=== PATIENT | female | born 1995 | race Caucasian/White ===

== ENCOUNTER 2022-06-06 15:20 | Inpatient (IN) ==
[2022-06-06] MEDS ORDERED: LORazepam 1 MG TAB SL STA (16:14)
--- NOTE | 2022-06-06 16:16 | Emergency Department Note ---
Impression & Plan Chest pain, Suicidal ideations, Depression ED Provider Note NAME: ODALIS WALTON AGE: 26 SEX: F : 1995 ARRIVES VIA: Walk-In INFORMANT: Patient, Mom ED PROVIDER(S): Prakash Whitehead DO CHIEF COMPLAINT: depression HPI: Patient is a 26-year-old female with a past medical history of ADD and OCD on Risperdal that presents to the ER for suicidal ideations that have been present for the past week. She notes that she lost her job and that has made things spiraled out of control. She admits to wanting to and has thoughts of killing herself and has thought about crashing her car or cutting her wrist to kill her self. She is very anxious that she does not want to leave her family. She denies any headache or change in vision. She admits to chest pain its been present for several weeks. No arm pain or jaw pain. Does not change with breathing. No new belly pain. No dysuria urgency or frequency. No other exacerbating or remitting factors. ROS: See above HPI for pertinent positives & negatives. A total of 10 systems r eviewed and were otherwise negative. PAST MEDICAL HISTORY:See Below PAST SURGICAL HISTORY:See Below FAMILY HISTORY:See Below SOCIAL HISTORY:See Below HOME MEDICATIONS:See Below ALLERGIES:See Below VITALS:See Below PHYSICAL EXAMINATION: GENERAL: Sitting up in bed, alert, tearful, crying EYE EXAM: normal conjunctiva. PERRL and EOM's grossly intact. OROPHARYNX: no exudate, no erythema, lips, buccal mucosa, and tongue normal and mucous membranes are moist NECK: supple, no nuchal rigidity, no adenopathy, non-tender LUNGS: Clear to auscultation. Normal chest wall mechanics HEART: no murmurs, S1 normal and S2 normal ABDOMEN: abdomen soft, non-tender, normo-active bowel sounds, no masses, no rebound or guarding. BACK: Back is symmetrical on inspection and there is no deformity, no midline tenderness, no CVA tenderness. SKIN: no rashes and no bruising UPPER EXTREMITIES: upper extremities are grossly normal. LOWER EXTREMITIES: No pitting edema. calfs are equal B/L NEURO EXAM: Normal sensorium, cranial nerves II-XII grossly intact, normal speech, no gross weakness of arms, no gross weakness of legs. PSYCH: Admits to suicidal ideations with a plan to kill her self MEDICAL DECISION MAKING: Patient is a 26-year-old female who presents ER for suicidal ideations. She does have a plan. Labs were obtained and showed no significant leukocytosis or anemia. D-dimer was negative and was obtained as she was complaining of chest pain this has been present for the past several weeks although she notes this is fairly consistent with her anxiety. BMP along with LFTs bilirubin was unrema rkable. TSH was normal. Troponin was negative. UA was contaminated. Tox was negative. Alcohol negative. COVID-negative. This x-ray was clean. EKG was nondiagnostic. Patient was admitted to 3 S. patient was given dose of Ativan while in the ER which helped her calm down significantly Start Time: 1600 Reason: Patient with PMHx of depression underwent ED Observation for chest pain and SI. Fam Hx: No pertinent family history SocHx: See Below Assessment(s): As described above Summary: As described above in [facility] Disposition: 06/06/2022 at 1933 total Time: 4hrs and 15 mins Triage Nursing notes reviewed. Limited review of prior medical records performed Vital Signs: reviewed and remarkable for HTN and tachy Differential diagnosis: Mood disorder, infection, hypoglycemia, electrolyte abnormalities, cardiac sources, intracerebral event, toxicologic, trauma, neurologic, as well as other pathologies. Cardiac ischemia, aortic dissection, pulmonary embolism, pneumothorax, pneumonia, pericarditis, myocarditis, esophageal rupture, GERD, cholecystitis, pancreatitis, musculoskeletal, as well as other pathologies. ER treatment provided: See below Diagnostics interpreted by me: ECG: Sinus rhythm rate 77 Normal axis No PVCs QTC 443 Laboratory studies: As stated above and show below. Imaging studies: Portable AP upright 1 view of the chest is unremarkable Consultation(s): none Procedures: none Critical Care: None Past Med/Surg History Medical History (Updated 06/06/22 @ 23:16 by Prakash Whitehead DO) Anxiety OCD (obsessive compulsive disorder) Family History Other No significant family history Social History Smoking Status: Never smoker Preferred Language: Wallisian Communication Ability: Effective Vacuum Drier Tender Required: No Beliefs That Will Affect Care: None Feels Safe at Home: Yes Assistive Devices: Glasses Allergies Allergies Allergy/AdvReac Type Severity Reaction Status Date / Time Penicillins Allergy Rash Verified 07/07/18 18:13 Home Meds Home Medications Medication Instructions Recorded Confirmed risperidone 2 mg PO 1XD anxiety 06/06/22 06/06/22 Results & Data (ED) Vital Signs Vital Signs - 24 hr 06/06/22 15:22 06/06/22 17:20 Temperature 36.8 C 36.6 C Temperature Source Temporal Artery Scan Oral Pulse Rate 108 H Pulse Rate [Finger] 68 Pulse Rhythm [Finger] Regular Pulse Strength [Finger] Normal Respiratory Rate 18 16 Respiratory Effort / Characteristics Non-Labored Respiratory Depth Normal Respiratory Pattern Regular Blood Pressure 150/74 H Blood Pressure [Right Arm] 128/74 Blood Pressure Mean 99 Blood Pressure Mean [Right Arm] 92 Pulse Oximetry 99 98 Oxygen Delivery Method Room Air Room Air Sepsis Recent Fever Within 48 Hours No Sepsis New/Unexplained Change in Mental Status No Sepsis Action Taken by Nursing No Action Required Laboratory Data Result diagrams: 06/06/22 16:39 06/06/22 16:39 Lab Results 06/06/22 06/06/22 06/06/22 Range/Units 15:55 15:55 15:55 WBC (4.8-10.8) K/ul RBC (3.93-5.22) M/uL Hgb (12.0-16.0) g/dl Hct (34.1-44.9) % MCV (80.0-100.0) fL MCH (25.0-34.0) pg MCHC (32.0-36.0) g/dL RDW Std Deviation (36.4-46.3) fL RDW Coeff of Christal (11.5-14.5) % Plt Count (130-400) K/uL MPV (9.4-12.3) fL Immature Gran % (Auto) % Neut % (Auto) % Lymph % (Auto) % Schleicher % (Auto) % Eos % (Auto) % Baso % (Auto) % Neut # (Auto) (1.4-6.5) K/uL Lymph # (Auto) (1.2-3.4) K/uL Schleicher # (Auto) (0.24-0.82) K/uL Eos # (Auto) (0-0.50) K/uL Baso # (Auto) (0-0.2) K/uL Immature Gran # (Auto) (0.00-0.02) K/uL D-Dimer (0-500) ug/L FEU Sodium (136-145) mmol/L Potassium (3.5-5.1) mmol/L Chloride (98-107) mmol/L Carbon Dioxide (21-32) mmol/L Anion Gap (3-11) BUN (6-23) mg/dl Creatinine (0.6-1.2) mg/dl Est Cr Clr Drug Dosing ml/min Est GFR ( Amer) ml/min Est GFR (Non-Af Amer) ml/min BUN/Creatinine Ratio (10-20) Glucose (70-99(Fasting)) mg/dl Calcium (8.5-10.1) mg/dl Total Bilirubin (0.2-1.0) mg/dl AST (13-39) U/L ALT (7-52) U/L Alkaline Phosphatase (34-104) U/L Troponin I High Sens (0-14) pg/ml Total Protein (6.0-8.3) gm/dl Albumin (3.4-5.0) gm/dl Globulin (2.5-4.0) gm/dl Albumin/Globulin Ratio (0.9-2) TSH (0.300-4.500) uIu/ml Urine Color Yellow Urine Appearance Clear (Clear) Urine pH 6.5 (4.5-7.5) Ur Specific [place] 1.005 (1.000-1.030) Urine Protein Negative (Negative) Urine Glucose (UA) Negative (Negative) Urine Ketones Negative (Negative) Urine Blood Negative (Negative) Urine Nitrite Negative (Negative) Urine Bilirubin Negative (Negative) Urine Urobilinogen Negative (Negative) Ur Leukocyte Esterase 3+ H (Negative) Urine WBC (Auto) 10-30 H (0-5) /hpf Urine RBC (Auto) 0-4 (0-4) /hpf U Hyaline Cast (Auto) 1-5 (0-5) /lpf U Epithel Cells (Auto) >30 H (0-5) /lpf Urine Bacteria (Auto) 1+ H (Negative) POC Ur Test NEG (NEG) Salicylates (3.0-30) mg/dl Urine Opiates Screen (Neg) Ur Methadone, Qual (Neg) Acetaminophen (10-30) ug/ml Urine Barbiturates (Neg) Ur Phencyclidine (PCP) (Neg) U Amphetamin/Meth Scrn (Neg) MDMA (Ecstasy) Screen (Neg) U Benzodiazepines Scrn (Neg) Ur Cocaine Metabolite (Neg) U Marijuana (THC) Screen (Neg) Ethyl Alcohol mg/dL (<10.0) mg/dl SARS-CoV-2, RNA, NAAT NEGATIVE (NEGATIVE) 06/06/22 06/06/22 06/06/22 Range/Units 15:55 16:39 16:39 WBC 6.88 (4.8-10.8) K/ul RBC 4.92 (3.93-5.22) M/uL Hgb 14.2 (12.0-16.0) g/dl Hct 41.3 (34.1-44.9) % MCV 83.9 (80.0-100.0) fL MCH 28.9 (25.0-34.0) pg MCHC 34.4 (32.0-36.0) g/dL RDW Std Deviation 35.8 L (36.4-46.3) fL RDW Coeff of Christal 11.8 (11.5-14.5) % Plt Count 358 (130-400) K/uL MPV 9.9 (9.4-12.3) fL Immature Gran % (Auto) 0.9 % Neut % (Auto) 49.6 % Lymph % (Auto) 35.3 % Schleicher % (Auto) 9.4 % Eos % (Auto) 3.6 % Baso % (Auto) 1.2 % Neut # (Auto) 3.41 (1.4-6.5) K/uL Lymph # (Auto) 2.43 (1.2-3.4) K/uL Schleicher # (Auto) 0.65 (0.24-0.82) K/uL Eos # (Auto) 0.25 (0-0.50) K/uL Baso # (Auto) 0.08 (0-0.2) K/uL Immature Gran # (Auto) 0.06 H (0.00-0.02) K/uL D-Dimer (0-500) ug/L FEU Sodium 138 (136-145) mmol/L Potassium 3.8 (3.5-5.1) mmol/L Chloride 105 (98-107) mmol/L Carbon Dioxide 28 (21-32) mmol/L Anion Gap 5 (3-11) BUN 11 (6-23) mg/dl Creatinine 0.83 (0.6-1.2) mg/dl Est Cr Clr Drug Dosing 100.8 ml/min Est GFR ( Amer) 113.6 ml/min Est GFR (Non-Af Amer) 98.0 ml/min BUN/Creatinine Ratio 13.3 (10-20) Glucose 79 (70-99(Fasting)) mg/dl Calcium 9.4 (8.5-10.1) mg/dl Total Bilirubin 0.3 (0.2-1.0) mg/dl AST 10 L (13-39) U/L ALT 9 (7-52) U/L Alkaline Phosphatase 55 (34-104) U/L Troponin I High Sens < 2.3 (0-14) pg/ml Total Protein 7.6 (6.0-8.3) gm/dl Albumin 4.5 (3.4-5.0) gm/dl Globulin 3.1 (2.5-4.0) gm/dl Albumin/Globulin Ratio 1.5 (0.9-2) TSH (0.300-4.500) uIu/ml Urine Color Urine Appearance (Clear) Urine pH (4.5-7.5) Ur Specific [place] (1.000-1.030) Urine Protein (Negative) Urine Glucose (UA) (Negative) Urine Ketones (Negative) Urine Blood (Negative) Urine Nitrite (Negative) Urine Bilirubin (Negative) Urine Urobilinogen (Negative) Ur Leukocyte Esterase (Negative) Urine WBC (Auto) (0-5) /hpf Urine RBC (Auto) (0-4) /hpf U Hyaline Cast (Auto) (0-5) /lpf U Epithel Cells (Auto) (0-5) /lpf Urine Bacteria (Auto) (Negative) POC Ur Test (NEG) Salicylates (3.0-30) mg/dl Urine Opiates Screen Neg (Neg) Ur Methadone, Qual Neg (Neg) Acetaminophen (10-30) ug/ml Urine Barbiturates Neg (Neg) Ur Phencyclidine (PCP) Neg (Neg) U Amphetamin/Meth Scrn Neg (Neg) MDMA (Ecstasy) Screen Neg (Neg) U Benzodiazepines Scrn Neg (Neg) Ur Cocaine Metabolite Neg (Neg) U Marijuana (THC) Screen Neg (Neg) Ethyl Alcohol mg/dL (<10.0) mg/dl SARS-CoV-2, RNA, NAAT (NEGATIVE) 06/06/22 06/06/22 06/06/22 Range/Units 16:39 16:39 16:39 WBC (4.8-10.8) K/ul RBC (3.93-5.22) M/uL Hgb (12.0-16.0) g/dl Hct (34.1-44.9) % MCV (80.0-100.0) fL MCH (25.0-34.0) pg MCHC (32.0-36.0) g/dL RDW Std Deviation (36.4-46.3) fL RDW Coeff of Christal (11.5-14.5) % Plt Count (130-400) K/uL MPV (9.4-12.3) fL Immature Gran % (Auto) % Neut % (Auto) % Lymph % (Auto) % Schleicher % (Auto) % Eos % (Auto) % Baso % (Auto) % Neut # (Auto) (1.4-6.5) K/uL Lymph # (Auto) (1.2-3.4) K/uL Schleicher # (Auto) (0.24-0.82) K/uL Eos # (Auto) (0-0.50) K/uL Baso # (Auto) (0-0.2) K/uL Immature Gran # (Auto) (0.00-0.02) K/uL D-Dimer (0-500) ug/L FEU Sodium (136-145) mmol/L Potassium (3.5-5.1) mmol/L Chloride (98-107) mmol/L Carbon Dioxide (21-32) mmol/L Anion Gap (3-11) BUN (6-23) mg/dl Creatinine (0.6-1.2) mg/dl Est Cr Clr Drug Dosing ml/min Est GFR ( Amer) ml/min Est GFR (Non-Af Amer) ml/min BUN/Creatinine Ratio (10-20) Glucose (70-99(Fasting)) mg/dl Calcium (8.5-10.1) mg/dl Total Bilirubin (0.2-1.0) mg/dl AST (13-39) U/L ALT (7-52) U/L Alkaline Phosphatase (34-104) U/L Troponin I High Sens (0-14) pg/ml Total Protein (6.0-8.3) gm/dl Albumin (3.4-5.0) gm/dl Globulin (2.5-4.0) gm/dl Albumin/Globulin Ratio (0.9-2) TSH 1.097 (0.300-4.500) uIu/ml Urine Color Urine Appearance (Clear) Urine pH (4.5-7.5) Ur Specific [place] (1.000-1.030) Urine Protein (Negative) Urine Glucose (UA) (Negative) Urine Ketones (Negative) Urine Blood (Negative) Urine Nitrite (Negative) Urine Bilirubin (Negative) Urine Urobilinogen (Negative) Ur Leukocyte Esterase (Negative) Urine WBC (Auto) (0-5) /hpf Urine RBC (Auto) (0-4) /hpf U Hyaline Cast (Auto) (0-5) /lpf U Epithel Cells (Auto) (0-5) /lpf Urine Bacteria (Auto) (Negative) POC Ur Test (NEG) Salicylates < 3.0 L (3.0-30) mg/dl Urine Opiates Screen (Neg) Ur Methadone, Qual (Neg) Acetaminophen < 3 L (10-30) ug/ml Urine Barbiturates (Neg) Ur Phencyclidine (PCP) (Neg) U Amphetamin/Meth Scrn (Neg) MDMA (Ecstasy) Screen (Neg) U Benzodiazepines Scrn (Neg) Ur Cocaine Metabolite (Neg) U Marijuana (THC) Screen (Neg) Ethyl Alcohol mg/dL < 10.0 (<10.0) mg/dl SARS-CoV-2, RNA, NAAT (NEGATIVE) 06/06/22 Range/Units 16:39 WBC (4.8-10.8) K/ul RBC (3.93-5.22) M/uL Hgb (12.0-16.0) g/dl Hct (34.1-44.9) % MCV (80.0-100.0) fL MCH (25.0-34.0) pg MCHC (32.0-36.0) g/dL RDW Std Deviation (36.4-46.3) fL RDW Coeff of Christal (11.5-14.5) % Plt Count (130-400) K/uL MPV (9.4-12.3) fL Immature Gran % (Auto) % Neut % (Auto) % Lymph % (Auto) % Schleicher % (Auto) % Eos % (Auto) % Baso % (Auto) % Neut # (Auto) (1.4-6.5) K/uL Lymph # (Auto) (1.2-3.4) K/uL Schleicher # (Auto) (0.24-0.82) K/uL Eos # (Auto) (0-0.50) K/uL Baso # (Auto) (0-0.2) K/uL Immature Gran # (Auto) (0.00-0.02) K/uL D-Dimer 270 (0-500) ug/L FEU Sodium (136-145) mmol/L Potassium (3.5-5.1) mmol/L Chloride (98-107) mmol/L Carbon Dioxide (21-32) mmol/L Anion Gap (3-11) BUN (6-23) mg/dl Creatinine (0.6-1.2) mg/dl Est Cr Clr Drug Dosing ml/min Est GFR ( Amer) ml/min Est GFR (Non-Af Amer) ml/min BUN/Creatinine Ratio (10-20) Glucose (70-99(Fasting)) mg/dl Calcium (8.5-10.1) mg/dl Total Bilirubin (0.2-1.0) mg/dl AST (13-39) U/L ALT (7-52) U/L Alkaline Phosphatase (34-104) U/L Troponin I High Sens (0-14) pg/ml Total Protein (6.0-8.3) gm/dl Albumin (3.4-5.0) gm/dl Globulin (2.5-4.0) gm/dl Albumin/Globulin Ratio (0.9-2) TSH (0.300-4.500) uIu/ml Urine Color Urine Appearance (Clear) Urine pH (4.5-7.5) Ur Specific [place] (1.000-1.030) Urine Protein (Negative) Urine Glucose (UA) (Negative) Urine Ketones (Negative) Urine Blood (Negative) Urine Nitrite (Negative) Urine Bilirubin (Negative) Urine Urobilinogen (Negative) Ur Leukocyte Esterase (Negative) Urine WBC (Auto) (0-5) /hpf Urine RBC (Auto) (0-4) /hpf U Hyaline Cast (Auto) (0-5) /lpf U Epithel Cells (Auto) (0-5) /lpf Urine Bacteria (Auto) (Negative) POC Ur Test (NEG) Salicylates (3.0-30) mg/dl Urine Opiates Screen (Neg) Ur Methadone, Qual (Neg) Acetaminophen (10-30) ug/ml Urine Barbiturates (Neg) Ur Phencyclidine (PCP) (Neg) U Amphetamin/Meth Scrn (Neg) MDMA (Ecstasy) Screen (Neg) U Benzodiazepines Scrn (Neg) Ur Cocaine Metabolite (Neg) U Marijuana (THC) Screen (Neg) Ethyl Alcohol mg/dL (<10.0) mg/dl SARS-CoV-2, RNA, NAAT (NEGATIVE) Administered Medications Risperidone (Risperidone 2 Mg Tablet) 2 mg PO HS JIHAN Stop: 07/06/22 21:59 Last Admin: 06/06/22 21:08 Dose: Not Given Documented By: RB Discontinued Medications Lorazepam (Lorazepam 1 Mg Tab) 1 mg SL NOW STA Stop: 06/06/22 16:15 Last Admin: 06/06/22 16:20 Dose: 1 mg Documented By: JY Imaging Data Radiologist's Impression: Chest X-Ray 06/06/22 16:13 XR chest 1V portable HISTORY: Atypical chest pain. COMPARISON: None. FINDINGS: The lungs are clear. Cardiac silhouette is normal in size. No pleural effusions. No pneumothorax. IMPRESSION: No acute process. ACT 112: Negative or not required by law. Electronically signed by: Anthony Evans M.D. 06/06/2022 4:36 PM Discharge Plan Visit Data Chief Complaint: Mental Health Evaluation Stated Complaint: DEPRESSION ED Provider: Prakash Whitehead Discharge Problem: Chest pain, Suicidal ideations, Depression Patient Disposition: Admitted As Inpatient Discharge Instructions Interventions: ED Discharge Assessment Last Done: 06/06/22 19:31
[2022-06-06 16:27] LABS: Appearance Urine Clear (Clear); Bacteria Urine Automated 1+ (Negative); Bilirubin Urine Negative (Negative); Blood Urine Negative (Negative); Color Urine Yellow; Epithelial Cell Urine Auto >30 /lpf (0-5); Glucose Urine UA Negative (Negative); Ketones Urine Negative (Negative); Leukocyte Esterase Urine 3+ (Negative); Nitrite Urine Negative (Negative); Protein Urine Negative (Negative); RBC Urine Automated 0-4 /hpf (0-4); Specific Gravity Urine 1.005 (1.000-1.030); Urobilinogen Urine Negative (Negative); pH Urine 6.5 (4.5-7.5)
--- NOTE | 2022-06-06 16:39 | XRay Report ---
XR chest 1V portable HISTORY: Atypical chest pain. COMPARISON: None. FINDINGS: The lungs are clear. Cardiac silhouette is normal in size. No pleural effusions. No pneumot horax. IMPRESSION: No acute process. ACT 112: Negative or not required by law. Electronically signed by: Anthony Evans M.D. 06/06/2022 4:36 PM
[2022-06-06 16:44] LABS: Amphetamines+Metham, Urine Neg (Neg); Barbiturates, Urine Neg (Neg); Benzodiazepine, Urine Neg (Neg); Cocaine, Urine Neg (Neg); MDMA (Ecstacy), Urine Neg (Neg); Methadone, Urine Neg (Neg); Opiate, Urine Neg (Neg); Phencyclidine, Urine Neg (Neg)
[2022-06-06 17:13] LABS: D Dimer 270 ug/L FEU (0-500)
[2022-06-06 17:24] LABS: Basophils # (auto) 0.08 K/uL (0-0.2); Basophils % (auto) 1.2 %; Eosinophils # (auto) 0.25 K/uL (0-0.50); Eosinophils % (auto) 3.6 %; Hematocrit (blood only) 41.3 % (34.1-44.9); Hemoglobin 14.2 g/dl (12.0-16.0); Immature Granulocytes # (auto) 0.06 K/uL (0.00-0.02); Immature Granulocytes % (auto) 0.9 %; Lymphocytes # (auto) 2.43 K/uL (1.2-3.4); Lymphocytes % (auto) 35.3 %; Mean Corpuscular Hemoglobin 28.9 pg (25.0-34.0); Mean Corpuscular Hgb Conc 34.4 g/dL (32.0-36.0); Mean Corpuscular Volume 83.9 fL (80.0-100.0); Mean Platelet Volume 9.9 fL (9.4-12.3); Monocytes # (auto) 0.65 K/uL (0.24-0.82); Monocytes % (auto) 9.4 %; Neutrophils # (auto) 3.41 K/uL (1.4-6.5); Neutrophils % (auto) 49.6 %; Platelet Count 358 K/uL (130-400); RDW Coefficient of Variation 11.8 % (11.5-14.5); RDW Standard Deviation 35.8 fL (36.4-46.3); Red Blood Count 4.92 M/uL (3.93-5.22); White Blood Count 6.88 K/ul (4.8-10.8)
[2022-06-06 17:25] LABS: Alanine Aminotransferase 9 U/L (7-52); Albumin Globulin Ratio 1.5 (0.9-2); Albumin Level 4.5 gm/dl (3.4-5.0); Alkaline Phosphatase 55 U/L (34-104); Anion Gap 5 (3-11); Aspartate Aminotransferase 10 U/L (13-39); BUN Creatinine Ratio 13.3 (10-20); Bilirubin,Total 0.3 mg/dl (0.2-1.0); Blood Urea Nitrogen 11 mg/dl (6-23); Calcium 9.4 mg/dl (8.5-10.1); Carbon Dioxide 28 mmol/L (21-32); Chloride 105 mmol/L (98-107); Creatinine Clr Calc Pharmacy 100.8 ml/min; Est GFR (African American) 113.6 ml/min; Globulin 3.1 gm/dl (2.5-4.0); Glucose 79 mg/dl (70-99(Fasting)); Potassium 3.8 mmol/L (3.5-5.1); Sodium 138 mmol/L (136-145); Total Protein 7.6 gm/dl (6.0-8.3)
[2022-06-06 17:27] LABS: Acetaminophen < 3 ug/ml (10-30); Salicylate < 3.0 mg/dl (3.0-30)
[2022-06-06 17:30] LABS: Troponin I High Sensitivity < 2.3 pg/ml (0-14)
[2022-06-06] MEDS ORDERED: ALUMINUM/MAGNESIUM SUSP 30 ML UDC PO PRN (18:45)
[2022-06-06] MEDS ORDERED: BISMUTH SUBSALICYLATE LIQD 236 ML PO PRN (18:45)
[2022-06-06] MEDS ORDERED: ACETAMINOPHEN 325 MG TAB PO PRN (18:45)
[2022-06-06] MEDS ORDERED: hydrOXYzine HCl 25 MG TAB PO PRN (18:45)
[2022-06-06] MEDS ORDERED: SODIUM CHLORIDE 0.65% NA SOLN 45 ML (OCEAN) PRN (18:45)
[2022-06-06] MEDS ORDERED: MAGNESIUM HYDROXIDE SUSP 30 ML UDC PO PRN (18:45)
[2022-06-06] MEDS: risperiDONE 2 MG TABLET PO SCH (21:08)
--- NOTE | 2022-06-07 08:34 | Electrocardiogram Report ---
Test Reason : Blood Pressure : / mmHG Vent. Rate : 077 BPM Atrial Rate : 077 BPM P-R Int : 188 ms QRS Dur : 090 ms QT Int : 392 ms P-R-T Axes : 077 077 072 degrees QTc Int : 443 ms Normal sinus rhythm Possible Left atrial enlargement Abnormal ECG When compared with ECG of 07-JUL-2018 19:13, No significant change was found Confirmed by Dwight De Guzman ([id number]) on 06/07/2022 8:33:45 AM Referred By: REFERRED SELF Confirmed By:Dwight De Guzman
--- NOTE | 2022-06-07 08:34 | History & Physical ---
Date of Service June 07, 2022 Impression / Recommendations Impression The patient is a 26 year old with a history of ADHD, OCD, BRANNON with panic attacks who was admitted for worsening depression and SI. Diagnostically consistent with OCD, BRANNON with panic attacks and MDD with anxious distress. May be an avoidant/cluster C trait component as well. Significant cognitive distortions and feelings of worthlessness due to having to quit her job/feeling like a failure which seem to have set off this episode of depression. The patient is deemed unstable and requires psychiatric hospitalization for diagnostic clarification, safety and stabilization, medication management and development of further coping skills. Discussed medication treatment options in detail including SSRI, SNRI, clomipramine, antipsychotics, mirtazapine, Vistaril. Discussed risks, benefits and alternatives. Patient would like to start and consented to mirtazapine for BRANNON/MDD/insomnia. Reviewed side effects including but not limited to: sedation, increased appetite, dizziness. She cannot recall if she tried sertraline in the past so will await record review and then determine sertraline vs venlafaxine trial. MNPR due to severe anxiety and OCD with contamination concerns (1) Severe single episode of major depressive disorder with anxiety: (2) Obsessive compulsive disorder: (3) Generalized anxiety disorder with panic attacks: Plan 06/07/22: The patient was admitted to the [facility] ([facility]) on q15 min checks (behavioral with suicide precautions) for safety. The patient will participate in group, recreational, and milieu therapies and will be offered additional individual and family sessions as clinically appropriate. -holding risperidone per her preference -start mirtazapine 7.5mg qhs for depression and anxiety -consider sertraline vs venlafaxine for OCD/BRANNON/MDD -consider N-acetyl cysteine trial in outpatient setting for further augmentation for OCD symptoms -Case management referral Inventory Assets Strengths: supportive relationships, willing to get treatment, has good rapport with outpatient providers Needs: safety and stabilization, medication adjustment, additional coping skills, increased outpatient services Suicide Risk Level Suicide Risk Level: High-Moderate (q15 min suicide checks) Suicide Risk Level Comments: High-Moderate due to severe depression with SI with plan prior to admission but feels safe in the hospital, able to safety contract and agrees to let nursing/staff know should they develop plan, intent or feel unable to remain safe. Risk Factors Assessment : Yes Do You Have Access To A Gun?: No Health Problems: No Mental Health Diagnoses: Yes Substance Use Disorders: No Previous Attempt: No Family History of Suicide: No Previous Psychiatric Hospitalization: Yes Hopelessness: Yes Protective Factors Assessment Employed: No Stable Relationships: Yes Supportive Family: Yes Good Rapport with Provider: Yes Psychiatric History Identifying Data ODALIS WALTON is a 26-year-old F who currently lives in [place] with her parents, has a history of ADHD, OCD, anxiety with panic attacks, and was admitted on 06/06/22 18:46 on a 201 voluntary commitment for worsening depression and SI with plan of crashing her car or cutting her wrist. Chief Complaint "I miss my mom". History of Present Illness She presents for psychiatric admission for worsening depression and SI with plan of crashing her car or cutting her wrists in the context of multiple psychosocial stressors including loss of her job/having to quit a week ago due to difficulty working/feedback that she had made mistakes and social isolation. She is very tearful this morning as she misses her parents and notes that it's difficult to be away from her mom. She notes "I'm scared of everything" including "how I'm going to keep a job" and she notes "I can't do my job right because of my OCD or I'm not qualified because I'm not good enough at it". "I just don't want to hurt and be so tired anymore". She notes "I don't want to live like this and I have no hope". She gets really worried that something bad will happen to her parents. Further recent history reviewed and confirmed as documented by ED CM on 06/06/22: "Patient presents very tearful. Patient states that she "wants to and does not want to live any more." Patient reports that she has history of OCD and ADHD. 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 Patient reports that she has been having bad thoughts for awhile, but they have worsened in the past week. Patient reports having suicidal thoughts of cutting her wrist or running her car into a tree." "Patient denies history of depression. Patient reports that she started having depression symptoms within the past week after losing her job. Patient reports decreased appetite, isolation, insomnia, poor concentration, and loss of interest in things that she usually finds pleasure in. Patient denies prior history of suicidal thoughts prior to this episode. Patient does report history of self-harm by punching herself in the stomach to make sure she can still feel. Patient scored high-moderate on suicide risk assessment. Patient reports protective factors being her parents. Patient does not want to hurt her parents by killing herself, but she is uncertain that it will keep herself from hurting herself. Patient reports a good relationship with her mental health providers. Patient also reports a very supportive relationship with her parents. [...] Patient reports that her OCD symptoms have greatly improved over the past week because she feels her depressive symptoms have over shadowed them. Patient reports that her parents were contaminated and they could not touch her. This past week she has allowed them to hug her, and provided physical support." She endorses depressive symptoms including tearfulness, anhedonia (usually loves to read, watch TV but hasn't been able to do these things recently), decreased motivation, difficulty focusing, self-guilt, helplessness, hopelessness, decreased energy, stable appetite but stomach has been upset recently with increased anxiety, and decreased sleep with difficulty staying asleep because wakes up with worries. She continues to have intermittent SI "they come and go". She also endorses symptoms of anxiety including generalized worries, shakiness, easily overwhelmed and panic attacks including "passing out from them" or "throwing up". With her OCD has a lot of numbers and patterns and some feel good versus bad. Compulsion requires her to repeat counting pattern and if she don't she feels "bad". She also has contamination concerns and has the compulsion to wash and was spending a lot of time doing this. She is currently prescribed psychiatric medication of risperidone 2mg qhs (has been taking this for about 6 months, had been helping OCD but she feels it's making her depression worse). Psychiatric ROS notable for no current nor history of symptoms of emley, psychosis, PTSD, nor eating disorder. Past Psychiatric History Current Psychiatric Diagnosis: OCD, ADD, anxiety Outpatient Services: therapist, Chantal Finn weekly including ERP and CBT, psychiatrist Dr. Sara Davidson weekly via telemedicine from [facility] for about 6 months Previous Psych Admissions: [facility] for 3 months in 2019 Do You Have Access To A Gun?: No History of Previous Suicide Attempt: No Past Medication Trials: fluvoxamine, fluoxetine, escitalopram-she recalls incontinence with one me dication in the past never tried clomipramine, SNRI Past Head Trauma/Neuro History History of Concussion/Seizure: No Allergies Allergy/AdvReac Type Severity Reaction Status Date / Time Penicillins Allergy Rash Verified 07/07/18 18:13 cat hair AdvReac Mild sinus Uncoded 06/07/22 10:43 congestion Home Medications Medication Instructions Recorded Confirmed Type risperidone 2 mg PO 1XD anxiety 06/06/22 06/06/22 History Family History Family History of: Depression (sister) and Anxiety (sister, mom) Alcohol History Hx of Alcohol Use Over the Past 12 Months: No AUDIT Total Score: 0 Smoking Use Have You Smoked or Used Tobacco Products in the Last 30 Days: No Smoking Status: Never smoker Substance History Hx of Prescription Med Misuse Over the Past 12 Months: No Hx of Over the Counter Med Misuse Over the Past 12 Months: No Hx of Inhalent Misuse Over the Past 12 Months: No Hx of Organic Substance Use Over the Past 12 Months: No Hx of Illegal Substances/Street Drug Use Over Past 12 Months: No Problems as a Result of Past Substance Use: None Identified Personal History Living Arrangements: Home Childhood: Grew up in [place]. Parents are . Has two sisters, both younger. Highest Grade Completed: College ([employer] with degree in security risk analysis) Employment Status: Unemployed Marital Status: Single Number Of Children: 0 Beliefs That Will Affect Care: None Current Legal Problems: No Hx Legal Problems: No Hx Traumatic Life Events: No Patient History Medical History (Updated 06/07/22 @ 11:12 by Genesis Magana MD) Anxiety OCD (obsessive compulsive disorder) Family History Other No significant family history Social History Smoking Status: Never smoker Preferred Language: Moroccan Communication Ability: Effective Access Consultant Required: No Beliefs That Will Affect Care: None Feels Safe at Home: Yes Assistive Devices: Glasses Review of Systems Review of Systems: All systems reviewed & are unremarkable except as noted in HPI & below (legs achy, LOPEZ, stomach ache) Physical Exam Psychiatric: Orientation: alert and oriented x 3 Apperance: appropriately dressed and appropriately groomed Eye Contact: good eye contact Motor Behavior: no abnormal motor movements Speech: normal rate/rhythm/volume of speech Affect: + depressed affect, + anxious affect and + tearful affect Mood: + depressed mood and + anxious mood Thought Process: goal directed thought process and + perseveration Thought Content: + obsessions, reality based without delusions, + compulsions, + hopelessness and + worthlessness Suicidal Thoughts: denies suicidal plan and denies suicidal intent; + reports suicidal thoughts (intermittent passive thoughts ) Homicidal Thoughts: denies homicidal thoughts Hallucinations: no auditory hallucinations and no visual hallucinations Cognition: recent memory grossly intact, remote memory grossly intact, attention grossly intact and language grossly intact Estimated Intelligence: consistent with education level Insight: + limited insight Judgement: + fair judgement Vital Signs (Past 24 Hours): Last Vital Signs Temp 36.8 C 06/07/22 06:40 Pulse 98 H 06/07/22 06:41 Resp 18 06/07/22 06:40 BP 103/70 06/07/22 06:41 Pulse Ox 100 06/06/22 20:18 O2 Del Method 06/06/22 20:18 Exam Statement: A physical exam was performed in the ED by Dr. Whitehead for the purposes of medical clearance. I accept that physical as correct and adequate for the purposes of the inpatient physical exam. Results & Data ([facility]) Laboratory Results Laboratory Results - last 24 hr 06/06/22 06/06/22 06/06/22 15:55 15:55 15:55 WBC RBC Hgb Hct MCV MCH MCHC RDW Std Deviation RDW Coeff of Christal Plt Count MPV Immature Gran % (Auto) Neut % (Auto) Lymph % (Auto) [place] % (Auto) Eos % (Auto) Baso % (Auto) Neut # (Auto) Lymph # (Auto) [place] # (Auto) Eos # (Auto) Baso # (Auto) Immature Gran # (Auto) D-Dimer Sodium Potassium Chloride Carbon Dioxide Anion Gap BUN Creatinine Est Cr Clr Drug Dosing Est GFR ( Amer) Est GFR (Non-Af Amer) BUN/Creatinine Ratio Glucose Calcium Total Bilirubin AST ALT Alkaline Phosphatase Troponin I High Sens Total Protein Albumin Globulin Albumin/Globulin Ratio TSH Urine Color Yellow Urine Appearance Clear Urine pH 6.5 Ur Specific Hendricks 1.005 Urine Protein Negative Urine Glucose (UA) Negative Urine Ketones Negative Urine Blood Negative Urine Nitrite Negative Urine Bilirubin Negative Urine Urobilinogen Negative Ur Leukocyte Esterase 3+ H Urine WBC (Auto) 10-30 H Urine RBC (Auto) 0-4 U Hyaline Cast (Auto) 1-5 U Epithel Cells (Auto) >30 H Urine Bacteria (Auto) 1+ H POC Ur Test NEG Salicylates Urine Opiates Screen Ur Methadone, Qual Acetaminophen Urine Barbiturates Ur Phencyclidine (PCP) U Amphetamin/Meth Scrn MDMA (Ecstasy) Screen U Benzodiazepines Scrn Ur Cocaine Metabolite U Marijuana (THC) Screen Ethyl Alcohol mg/dL SARS-CoV-2, RNA, NAAT NEGATIVE 06/06/22 06/06/22 06/06/22 15:55 16:39 16:39 WBC 6.88 RBC 4.92 Hgb 14.2 Hct 41.3 MCV 83.9 MCH 28.9 MCHC 34.4 RDW Std Deviation 35.8 L RDW Coeff of Christal 11.8 Plt Count 358 MPV 9.9 Immature Gran % (Auto) 0.9 Neut % (Auto) 49.6 Lymph % (Auto) 35.3 [place] % (Auto) 9.4 Eos % (Auto) 3.6 Baso % (Auto) 1.2 Neut # (Auto) 3.41 Lymph # (Auto) 2.43 [place] # (Auto) 0.65 Eos # (Auto) 0.25 Baso # (Auto) 0.08 Immature Gran # (Auto) 0.06 H D-Dimer Sodium 138 Potassium 3.8 Chloride 105 Carbon Dioxide 28 Anion Gap 5 BUN 11 Creatinine 0.83 Est Cr Clr Drug Dosing 100.8 Est GFR ( Amer) 113.6 Est GFR (Non-Af Amer) 98.0 BUN/Creatinine Ratio 13.3 Glucose 79 Calcium 9.4 Total Bilirubin 0.3 AST 10 L ALT 9 Alkaline Phosphatase 55 Troponin I High Sens < 2.3 Total Protein 7.6 Albumin 4.5 Globulin 3.1 Albumin/Globulin Ratio 1.5 TSH Urine Color Urine Appearance Urine pH Ur Specific Hendricks Urine Protein Urine Glucose (UA) Urine Ketones Urine Blood Urine Nitrite Urine Bilirubin Urine Urobilinogen Ur Leukocyte Esterase Urine WBC (Auto) Urine RBC (Auto) U Hyaline Cast (Auto) U Epithel Cells (Auto) Urine Bacteria (Auto) POC Ur Test Salicylates Urine Opiates Screen Neg Ur Methadone, Qual Neg Acetaminophen Urine Barbiturates Neg Ur Phencyclidine (PCP) Neg U Amphetamin/Meth Scrn Neg MDMA (Ecstasy) Screen Neg U Benzodiazepines Scrn Neg Ur Cocaine Metabolite Neg U Marijuana (THC) Screen Neg Ethyl Alcohol mg/dL SARS-CoV-2, RNA, NAAT 06/06/22 06/06/22 06/06/22 16:39 16:39 16:39 WBC RBC Hgb Hct MCV MCH MCHC RDW Std Deviation RDW Coeff of Christal Plt Count MPV Immature Gran % (Auto) Neut % (Auto) Lymph % (Auto) [place] % (Auto) Eos % (Auto) Baso % (Auto) Neut # (Auto) Lymph # (Auto) [place] # (Auto) Eos # (Auto) Baso # (Auto) Immature Gran # (Auto) D-Dimer Sodium Potassium Chloride Carbon Dioxide Anion Gap BUN Creatinine Est Cr Clr Drug Dosing Est GFR ( Amer) Est GFR (Non-Af Amer) BUN/Creatinine Ratio Glucose Calcium Total Bilirubin AST ALT Alkaline Phosphatase Troponin I High Sens Total Protein Albumin Globulin Albumin/Globulin Ratio TSH 1.097 Urine Color Urine Appearance Urine pH Ur Specific [place]ricks Urine Protein Urine Glucose (UA) Urine Ketones Urine Blood Urine Nitrite Urine Bilirubin Urine Urobilinogen Ur Leukocyte Esterase Urine WBC (Auto) Urine RBC (Auto) U Hyaline Cast (Auto) U Epithel Cells (Auto) Urine Bacteria (Auto) POC Ur Test Salicylates < 3.0 L Urine Opiates Screen Ur Methadone, Qual Acetaminophen < 3 L Urine Barbiturates Ur Phencyclidine (PCP) U Amphetamin/Meth Scrn MDMA (Ecstasy) Screen U Benzodiazepines Scrn Ur Cocaine Metabolite U Marijuana (THC) Screen Ethyl Alcohol mg/dL < 10.0 SARS-CoV-2, RNA, NAAT 06/06/22 16:39 WBC RBC Hgb Hct MCV MCH MCHC RDW Std Deviation RDW Coeff of Christal Plt Count MPV Immature Gran % (Auto) Neut % (Auto) Lymph % (Auto) [place] % (Auto) Eos % (Auto) Baso % (Auto) Neut # (Auto) Lymph # (Auto) [place] # (Auto) Eos # (Auto) Baso # (Auto) Immature Gran # (Auto) D-Dimer 270 Sodium Potassium Chloride Carbon Dioxide Anion Gap BUN Creatinine Est Cr Clr Drug Dosing Est GFR ( Amer) Est GFR (Non-Af Amer) BUN/Creatinine Ratio Glucose Calcium Total Bilirubin AST ALT Alkaline Phosphatase Troponin I High Sens Total Protein Albumin Globulin Albumin/Globulin Ratio TSH Urine Color Urine Appearance Urine pH Ur Specific [place] Urine Protein Urine Glucose (UA) Urine Ketones Urine Blood Urine Nitrite Urine Bilirubin Urine Urobilinogen Ur Leukocyte Esterase Urine WBC (Auto) Urine RBC (Auto) U Hyaline Cast (Auto) U Epithel Cells (Auto) Urine Bacteria (Auto) POC Ur Test Salicylates Urine Opiates Screen Ur Methadone, Qual Acetaminophen Urine Barbiturates Ur Phencyclidine (PCP) U Amphetamin/Meth Scrn MDMA (Ecstasy) Screen U Benzodiazepines Scrn Ur Cocaine Metabolite U Marijuana (THC) Screen Ethyl Alcohol mg/dL SARS-CoV-2, RNA, NAAT Current Inpatient Medications Current Inpatient Medications: Current Inpatient Medications Acetaminophen (Acetaminophen 325 Mg Tab) 650 mg PO Q4H PRN PRN Reason: Headache or Minor Fever Stop: 07/06/22 18:44 Al Hydrox/Mg Hydrox/Simethicone (Aluminum/Magnesium Susp 30 Ml Udc) 30 ml PO Q4H PRN PRN Reason: GI Upset Stop: 07/06/22 18:44 Bismuth Subsalicylate (Bismuth Subsalicylate Liqd 236 Ml) 15 ml PO PRN PRN PRN Reason: Loose Stool Stop: 07/06/22 18:44 Hydroxyzine HCl (Hydroxyzine Hcl 25 Mg Tab) 50 mg PO HSZ PRN PRN Reason: Insomnia Stop: 07/06/22 18:44 Hydroxyzine HCl (Hydroxyzine Hcl 25 Mg Tab) 25 mg PO Q4H PRN PRN Reason: Anxiety Stop: 07/06/22 18:44 Magnesium Hydroxide (Magnesium Hydroxide Susp 30 Ml Udc) 30 ml PO DAILY PRN PRN Reason: Constipation Stop: 07/06/22 18:44 Risperidone (Risperidone 2 Mg Tablet) 2 mg PO HS JIHAN Stop: 07/06/22 21:59 Last Admin: 06/06/22 21:08 Dose: Not Given Sodium Chloride (Sodium Chloride 0.65% Na Soln 45 Ml ([place])) 1 - 2 sprays NA PRN PRN PRN Reason: Nasal Dryness/Congestion Stop: 07/06/22 18:44
[2022-06-07] MEDS: hydrOXYzine HCl 25 MG TAB PO PRN (09:14)
[2022-06-07] MEDS: risperiDONE 2 MG TABLET PO SCH (21:19)
[2022-06-08] MEDS: hydrOXYzine HCl 25 MG TAB PO PRN (08:12)
--- NOTE | 2022-06-08 12:43 | Psychiatric Progress Note ---
Date of Service June 08, 2022 Impression / Recommendations Impression The patient is a 26 year old with a history of ADHD, OCD, BRANNON with panic attacks who was admitted for worsening depression and SI. Diagnostically consistent with OCD, BRANNON with panic attacks and MDD with anxious distress. May be an avoidant/cluster C trait component as well. Significant cognitive distortions and feelings of worthlessness due to having to quit her job/feeling like a failure which seem to have set off this episode of depression. The patient is deemed unstable and requires psychiatric hospitalization for diagnostic clarification, safety and stabilization, medication management and development of further coping skills. MNPR due to severe anxiety and OCD with contamination concerns 06/08/22: Ongoing depression, anxiety, OCD with intermittent SI. Spoke with her outpatient psychiatrist Dr. Lange on the phone and reviewed other recent stressors likely contributing to hospitalization including her parents going away on a trip and her grandmother's and just a few days prior to admission and likely contributing to her increased anxiety about something happening to her parents/existential fears about finding meaning/accomplishment in her life. Reviewed that DBS would be an option in the future that Dr. Lange has been exploring with her given poor tolerance and significant hyperfixation/sensitivity to medication side effects which limits ability to fully optimize medication trials in the past. Confirmed no previous trial of mirtazapine nor sertraline. Discussed medication treatment options in detail again with Odalis including risperidone vs sertraline vs venlafaxine. Discussed risks, benefits and alternatives. She consented to restarting risperidone for OCD and sertraline for MDD/BRANNON/OCD. Reviewed side effects including but not limited to: GI, LOPEZ, sexual side effects, and counseled on black box warning of potential for emergence of or increased SI and need to let staff know should this occur or should they feel unsafe. Also discussed importance of seeking emergency care following discharge if this side effect occurs in the future for sertraline as well as movement (TD, NMS), cardiac (QTc prolongation), and metabolic (stroke, insulin resistance) and necessity for fasting lipid and glucose labwork and AIMS done with score of 0 for risperidone. (1) Severe single episode of major depressive disorder with anxiety: (2) Obsessive compulsive disorder: (3) Generalized anxiety disorder with panic attacks: Plan 06/08/22: -restart risperidone 1.5mg qhs -mirtazapine 7.5 mg qhs -start sertraline 25mg qhs (per her preference as then potentially will be less susceptible to GI side effects) 06/07/22: The patient was admitted to the [facility] ([facility]) on q15 min checks (behavioral with suicide precautions) for safety. The patient will participate in group, recreational, and milieu therapies and will be offered additional individual and family sessions as clinically appropriate. -holding risperidone per her preference -start mirtazapine 7.5mg qhs for depression and anxiety -consider sertraline vs venlafaxine for OCD/BRANNON/MDD -consider N-acetyl cysteine trial in outpatient setting for further augmentation for OCD symptoms -Case management referral Inventory Assets Strengths: supportive relationships, willing to get treatment, has good rapport with outpatient providers Needs: safety and stabilization, medication adjustment, additional coping skills, increased outpatient services Suicide Risk Level Suicide Risk Level: High-Moderate (q15 min suicide checks) Suicide Risk Level Comments: High-Moderate due to severe depression with SI with plan prior to admission but feels safe in the hospital, able to safety contract and agrees to let nursing/staff know should they develop plan, intent or feel unable to remain safe. Risk Factors Assessment : Yes Do You Have Access To A Gun?: No Health Problems: No Mental Health Diagnoses: Yes Substance Use Disorders: No Previous Attempt: No Family History of Suicide: No Previous Psychiatric Hospitalization: Yes Hopelessness: Yes Protective Factors Assessment Employed: No Stable Relationships: Yes Supportive Family: Yes Good Rapport with Provider: Yes Interval History Identifying Information ODALIS WALTON is a 26-year-old F who currently lives in [place] with her parents, has a history of ADHD, OCD, anxiety with panic attacks, and was admitted on 06/06/22 18:46 on a 201 voluntary commitment for worsening depression and SI with plan of crashing her car or cutting her wrist. Chief Complaint "I really miss my mom still". Review of Systems Sleep Information Total Hours of Sleep: 7 Sleep Comments: vistaril Meal Information Percent Meal Consumed - Breakfast: 100 Percent Meal Consumed - Lunch: 75 Percent Meal Consumed - Dinner: 70 Subjective Subjective Patient was seen & assessed and interval progress reviewed with treatment team nursing and social work. Remains tearful intermittently, misses her parents but participating in groups. Has been using Vistaril prn for ongoing high levels of anxiety and still feels depressed and becomes tearful discussing hopelessness and helplessness and shame about not being able to succeed at her job. She spoke with case management intake provider on the phone and tolerated that discussion. SI is lessening a bit. States her OCD is "much worse" and "really bad" today. Physical Exam Psychiatric Orientation: alert and oriented x 3 Apperance: appropriately dressed and appropriately groomed Eye Contact: good eye contact Motor Behavior: no abnormal motor movements Speech: normal rate/rhythm/volume of speech Affect: + depressed affect, + anxious affect and + tearful affect Mood: + depressed mood and + anxious mood Thought Process: goal directed thought process and + perseveration Thought Content: + obsessions, reality based without delusions, + compulsions, + hopelessness and + worthlessness Suicidal Thoughts: denies suicidal plan and denies suicidal intent; + reports suicidal thoughts (intermittent) Homicidal Thoughts: denies homicidal thoughts Hallucinations: no auditory hallucinations and no visual hallucinations Cognition: recent memory grossly intact, remote memory grossly intact, attention grossly intact and language grossly intact Insight: + limited insight Judgement: + fair judgement Vital Signs (Past 24 Hours) Last Vital Signs Temp 36.9 C 06/08/22 06:32 Pulse 83 06/08/22 06:33 Resp 16 06/08/22 06:32 BP 107/77 06/08/22 06:33 Pulse Ox 100 06/06/22 20:18 O2 Del Method 06/06/22 20:18 Results & Data ([facility]) Current Inpatient Medications Current Inpatient Medications: Current Inpatient Medications Acetaminophen (Acetaminophen 325 Mg Tab) 650 mg PO Q4H PRN PRN Reason: Headache or Minor Fever Stop: 07/06/22 18:44 Last Admin: 06/07/22 11:06 Dose: 650 mg Al Hydrox/Mg Hydrox/Simethicone (Aluminum/Magnesium Susp 30 Ml Udc) 30 ml PO Q4H PRN PRN Reason: GI Upset Stop: 07/06/22 18:44 Bismuth Subsalicylate (Bismuth Subsalicylate Liqd 236 Ml) 15 ml PO PRN PRN PRN Reason: Loose Stool Stop: 07/06/22 18:44 Hydroxyzine HCl (Hydroxyzine Hcl 25 Mg Tab) 50 mg PO HSZ PRN PRN Reason: Insomnia Stop: 07/06/22 18:44 Last Admin: 06/07/22 21:19 Dose: 50 mg Hydroxyzine HCl (Hydroxyzine Hcl 25 Mg Tab) 25 mg PO Q4H PRN PRN Reason: Anxiety Stop: 07/06/22 18:44 Last Admin: 06/08/22 08:12 Dose: 25 mg Magnesium Hydroxide (Magnesium Hydroxide Susp 30 Ml Udc) 30 ml PO DAILY PRN PRN Reason: Constipation Stop: 07/06/22 18:44 Mirtazapine (Mirtazapine Tab 15 Mg Tab) 7.5 mg PO HS JIHAN Stop: 07/08/22 21:59 Sodium Chloride (Sodium Chloride 0.65% Na Soln 45 Ml ([place])) 1 - 2 sprays NA PRN PRN PRN Reason: Nasal Dryness/Congestion Stop: 07/06/22 18:44 Mental Health & Subst Abuse Tx Therapist Name of Therapist: Chantal Finn Date of Therapist Appointment: 06/13/22 Post Discharge Appointments Primary Care Physician Name Of Family Doctor: Dr. Guaman
[2022-06-08] MEDS: SERTRALINE HCL 50 MG TABLET PO SCH (20:24)
[2022-06-08] MEDS: MIRTAZAPINE TAB 15 MG TAB PO SCH (20:24)
[2022-06-08] MEDS: risperiDONE 1 MG TABLET PO SCH (20:25)
[2022-06-08] MEDS ORDERED: risperiDONE 1 MG TABLET PO SCH (22:00)
[2022-06-09 09:02] LABS: Chol HDL Ratio 3.7 (0-5)
--- NOTE | 2022-06-09 12:25 | Psychiatric Progress Note ---
Date of Service June 09, 2022 Impression / Recommendations Impression The patient is a 26 year old with a history of ADHD, OCD, BRANNON with panic attacks who was admitted for worsening depression and SI. Diagnostically consistent with OCD, BRANNON with panic attacks and MDD with anxious distress. May be an avoidant/cluster C trait component as well. Significant cognitive distortions and feelings of worthlessness due to having to quit her job/feeling like a failure which seem to have set off this episode of depression. The patient is deemed unstable and requires psychiatric hospitalization for diagnostic clarification, safety and stabilization, medication management and development of further coping skills. MNPR due to severe anxiety and OCD with contamination concerns 06/09/22: minimal change, she is requesting discharge but discussed ongoing rationale for stay through weekend and she is agreeable for now. (1) Severe single episode of major depressive disorder with anxiety: (2) Obsessive compulsive disorder: (3) Generalized anxiety disorder with panic attacks: Plan 06/09/22: continue current meds and treatment plan. 06/08/22: -restart risperidone 1.5mg qhs -mirtazapine 7.5 mg qhs -start sertraline 25mg qhs (per her preference as then potentially will be less susceptible to GI side effects) 06/07/22: The patient was admitted to the [facility] ([facility]) on q15 min checks (behavioral with suicide precautions) for safety. The patient will participate in group, recreational, and milieu therapies and will be offered additional individual and family sessions as clinically appropriate. -holding risperidone per her preference -start mirtazapine 7.5mg qhs for depression and anxiety -consider sertraline vs venlafaxine for OCD/BRANNON/MDD -consider N-acetyl cysteine trial in outpatient setting for further augmentation for OCD symptoms -Case management referral Inventory Assets Strengths: supportive relationships, willing to get treatment, has good rapport with outpatient providers Needs: safety and stabilization, medication adjustment, additional coping skills, increased outpatient services Suicide Risk Level Suicide Risk Level: High-Moderate (q15 min suicide checks) Risk Factors Assessment : Yes Do You Have Access To A Gun?: No Health Problems: No Mental Health Diagnoses: Yes Substance Use Disorders: No Previous Attempt: No Family History of Suicide: No Previous Psychiatric Hospitalization: Yes Hopelessness: Yes Protective Factors Assessment Employed: No Stable Relationships: Yes Supportive Family: Yes Good Rapport with Provider: Yes Interval History Identifying Information ODALIS WALTON is a 26-year-old F who currently lives in [place] with her parents, has a history of ADHD, OCD, anxiety with panic attacks, and was admitted on 06/06/22 18:46 on a 201 voluntary commitment for worsening depression and SI with plan of crashing her car or cutting her wrist. Chief Complaint "I just obsess over wasting my degree and not being able to keep a job. I miss my parents." Review of Systems Sleep Information Total Hours of Sleep: 8 Sleep Comments: vistaril Meal Information Percent Meal Consumed - Breakfast: 100 Percent Meal Consumed - Lunch: 100 Percent Meal Consumed - Dinner: 100 Subjective Subjective Patient was seen & assessed and interval progress reviewed with nursing and social work. Remains focussed on return home to the point she scheduled her own family meeting. She discussed her fears about not wanting to be a failure and how this drove her recent SI as makes sense to "end it now" rather than wait to be a "huge disappointment." Is able to describe reciting names from her favorite tv shows as a stop technique. Physical Exam Psychiatric Orientation: alert and oriented x 3 Apperance: appropriately dressed and appropriately groomed Eye Contact: good eye contact Motor Behavior: no abnormal motor movements Speech: normal rate/rhythm/volume of speech Affect: + depressed affect, + anxious affect and + tearful affect Mood: + depressed mood and + anxious mood Thought Process: + perseveration Thought Content: + obsessions, reality based without delusions, + compulsions, + hopelessness and + worthlessness Suicidal Thoughts: denies suicidal plan and denies suicidal intent; + reports suicidal thoughts (intermittent) Homicidal Thoughts: denies homicidal thoughts Hallucinations: no auditory hallucinations and no visual hallucinations Cognition: recent memory grossly intact, remote memory grossly intact, attention grossly intact and language grossly intact Estimated Intelligence: consistent with education level Insight: + limited insight Vital Signs (Past 24 Hours) Last Vital Signs Temp 36.8 C 06/09/22 06:42 Pulse 112 H 06/09/22 06:42 Resp 16 06/09/22 06:42 BP 113/78 06/09/22 06:42 Pulse Ox 100 06/06/22 20:18 O2 Del Method 06/06/22 20:18 Results & Data ([facility]) Laboratory Results Laboratory Results - last 24 hr 06/09/22 07:58 Fasting Glucose 84 Triglycerides 82 Cholesterol 172 LDL Cholesterol, Calc 109 VLDL Cholesterol, Calc 16 HDL Cholesterol 47 Cholesterol/HDL Ratio 3.7 Current Inpatient Medications Current Inpatient Medications: Current Inpatient Medications Acetaminophen (Acetaminophen 325 Mg Tab) 650 mg PO Q4H PRN PRN Reason: Headache or Minor Fever Stop: 07/06/22 18:44 Last Admin: 06/07/22 11:06 Dose: 650 mg Al Hydrox/Mg Hydrox/Simethicone (Aluminum/Magnesium Susp 30 Ml Udc) 30 ml PO Q4H PRN PRN Reason: GI Upset Stop: 07/06/22 18:44 Bismuth Subsalicylate (Bismuth Subsalicylate Liqd 236 Ml) 15 ml PO PRN PRN PRN Reason: Loose Stool Stop: 07/06/22 18:44 Hydroxyzine HCl (Hydroxyzine Hcl 25 Mg Tab) 50 mg PO HSZ PRN PRN Reason: Insomnia Stop: 07/06/22 18:44 Last Admin: 06/07/22 21:19 Dose: 50 mg Hydroxyzine HCl (Hydroxyzine Hcl 25 Mg Tab) 25 mg PO Q4H PRN PRN Reason: Anxiety Stop: 07/06/22 18:44 Last Admin: 06/08/22 08:12 Dose: 25 mg Magnesium Hydroxide (Magnesium Hydroxide Susp 30 Ml Udc) 30 ml PO DAILY PRN PRN Reason: Constipation Stop: 07/06/22 18:44 Mirtazapine (Mirtazapine Tab 15 Mg Tab) 7.5 mg PO HS JIHAN Stop: 07/08/22 21:59 Last Admin: 06/08/22 20:24 Dose: 7.5 mg Risperidone (Risperidone 1 Mg Tablet) 1.5 mg PO HS JIHAN Stop: 07/08/22 21:59 Last Admin: 06/08/22 20:25 Dose: 1.5 mg Sertraline HCl (Sertraline Hcl 50 Mg Tablet) 25 mg PO HS JIHAN Stop: 07/08/22 21:59 Last Admin: 06/08/22 20:24 Dose: 25 mg Sodium Chloride (Sodium Chloride 0.65% Na Soln 45 Ml ([place])) 1 - 2 sprays NA PRN PRN PRN Reason: Nasal Dryness/Congestion Stop: 07/06/22 18:44 Mental Health & Subst Abuse Tx Therapist Name of Therapist: Chantal Finn Date of Therapist Appointment: 06/13/22 Post Discharge Appointments Primary Care Physician Name Of Family Doctor: Dr. Guaman
[2022-06-09] MEDS: risperiDONE 1 MG TABLET PO SCH (20:38)
[2022-06-09] MEDS: SERTRALINE HCL 50 MG TABLET PO SCH (20:38)
[2022-06-09] MEDS: MIRTAZAPINE TAB 15 MG TAB PO SCH (20:39)
--- NOTE | 2022-06-10 09:56 | Psychiatric Progress Note ---
Date of Service June 10, 2022 Impression / Recommendations Impression The patient is a 26 year old with a history of ADHD, OCD, BRANNON with panic attacks who was admitted for worsening depression and SI. Diagnostically consistent with OCD, BRANNON with panic attacks and MDD with anxious distress. May be an avoidant/cluster C trait component as well. Significant cognitive distortions and feelings of worthlessness due to having to quit her job/feeling like a failure which seem to have set off this episode of depression. The patient is deemed unstable and requires psychiatric hospitalization for diagnostic clarification, safety and stabilization, medication management and development of further coping skills. MNPR due to severe anxiety and OCD with contamination concerns 06/10/22: ongoing obsessions but tolerating meds and does bright spontaneously (1) Severe single episode of major depressive disorder with anxiety: (2) Obsessive compulsive disorder: (3) Generalized anxiety disorder with panic attacks: Plan 06/10/22: would hold Zoloft titration to an outpatient basis with plan to taper Risperdal when more therapeutic level. 06/09/22: continue current meds and treatment plan. 06/08/22: -restart risperidone 1.5mg qhs -mirtazapine 7.5 mg qhs -start sertraline 25mg qhs (per her preference as then potentially will be less susceptible to GI side effects) 06/07/22: The patient was admitted to the [facility] ([facility]) on q15 min checks (behavioral with suicide precautions) for safety. The patient will participate in group, recreational, and milieu therapies and will be offered additional individual and family sessions as clinically appropriate. -holding risperidone per her preference -start mirtazapine 7.5mg qhs for depression and anxiety -consider sertraline vs venlafaxine for OCD/BRANNON/MDD -consider N-acetyl cysteine trial in outpatient setting for further augmentation for OCD symptoms -Case management referral Inventory Assets Strengths: supportive relationships, willing to get treatment, has good rapport with outpatient providers Needs: safety and stabilization, medication adjustment, additional coping skills, increased outpatient services Suicide Risk Level Suicide Risk Level: Moderate (q15 min suicide checks) Risk Factors Assessment : Yes Do You Have Access To A Gun?: No Health Problems: No Mental Health Diagnoses: Yes Substance Use Disorders: No Previous Attempt: No Family History of Suicide: No Previous Psychiatric Hospitalization: Yes Hopelessness: Yes Protective Factors Assessment Employed: No Stable Relationships: Yes Supportive Family: Yes Good Rapport with Provider: Yes Interval History Identifying Information ODALIS WALTON is a 26-year-old F who currently lives in [place] with her parents, has a history of ADHD, OCD, anxiety with panic attacks, and was admitted on 06/06/22 18:46 on a 201 voluntary commitment for worsening depression and SI with plan of crashing her car or cutting her wrist. Chief Complaint "I feel guilty for things I've done, I'm not as smart as my parents think I am." Review of Systems Sleep Information Total Hours of Sleep: 8 Sleep Comments: vistaril Meal Information Percent Meal Consumed - Breakfast: 100 Percent Meal Consumed - Lunch: 100 Percent Meal Consumed - Dinner: 100 Subjective Subjective Patient was seen & assessed and interval progress reviewed with nursing and social work. Good family meeting. Denied SI at that time but this am says she still feels like a failure and doesn't deserve to live. Morbid preoccupation since grandmother's as less successful than others in family. Reviewed how she can redirect conversations, utilize stop techniques but also recognize negative loops and discount all or nothing thinking. She feels that Risperdal is working but also that it contributes to restlessness and may ultimately want to try something else. Discussed short vs. correction goals. Physical Exam Psychiatric Orientation: alert Apperance: appropriately dressed and appropriately groomed Eye Contact: good eye contact Motor Behavior: no abnormal motor movements Speech: normal rate/rhythm/volume of speech Affect: + depressed affect and + anxious affect Mood: + depressed mood and + anxious mood Thought Process: + perseveration Thought Content: + obsessions, + compulsions and + hopelessness Suicidal Thoughts: denies suicidal thoughts (but has preoccupation/obsession about her worth to be alive (passive)), denies suicidal plan and denies suicidal intent Homicidal Thoughts: denies homicidal thoughts Hallucinations: no auditory hallucinations and no visual hallucinations Cognition: attention grossly intact Vital Signs (Past 24 Hours) Last Vital Signs Temp 36.9 C 06/10/22 06:42 Pulse 101 H 06/10/22 06:43 Resp 16 06/10/22 06:42 BP 96/65 L 06/10/22 06:43 Pulse Ox 100 06/06/22 20:18 O2 Del Method 06/06/22 20:18 Results & Data ([facility]) Current Inpatient Medications Current Inpatient Medications: Current Inpatient Medications Acetaminophen (Acetaminophen 325 Mg Tab) 650 mg PO Q4H PRN PRN Reason: Headache or Minor Fever Stop: 07/06/22 18:44 Last Admin: 06/07/22 11:06 Dose: 650 mg Al Hydrox/Mg Hydrox/Simethicone (Aluminum/Magnesium Susp 30 Ml Udc) 30 ml PO Q4H PRN PRN Reason: GI Upset Stop: 07/06/22 18:44 Bismuth Subsalicylate (Bismuth Subsalicylate Liqd 236 Ml) 15 ml PO PRN PRN PRN Reason: Loose Stool Stop: 07/06/22 18:44 Hydroxyzine HCl (Hydroxyzine Hcl 25 Mg Tab) 50 mg PO HSZ PRN PRN Reason: Insomnia Stop: 07/06/22 18:44 Last Admin: 06/07/22 21:19 Dose: 50 mg Hydroxyzine HCl (Hydroxyzine Hcl 25 Mg Tab) 25 mg PO Q4H PRN PRN Reason: Anxiety Stop: 07/06/22 18:44 Last Admin: 06/08/22 08:12 Dose: 25 mg Magnesium Hydroxide (Magnesium Hydroxide Susp 30 Ml Udc) 30 ml PO DAILY PRN PRN Reason: Constipation Stop: 07/06/22 18:44 Mirtazapine (Mirtazapine Tab 15 Mg Tab) 7.5 mg PO HS JIHAN Stop: 07/08/22 21:59 Last Admin: 06/09/22 20:39 Dose: 7.5 mg Risperidone (Risperidone 1 Mg Tablet) 1.5 mg PO HS JIHAN Stop: 07/08/22 21:59 Last Admin: 06/09/22 20:38 Dose: 1.5 mg Sertraline HCl (Sertraline Hcl 50 Mg Tablet) 25 mg PO HS JIHAN Stop: 07/08/22 21:59 Last Admin: 06/09/22 20:38 Dose: 25 mg Sodium Chloride (Sodium Chloride 0.65% Na Soln 45 Ml ([place])) 1 - 2 sprays NA PRN PRN PRN Reason: Nasal Dryness/Congestion Stop: 07/06/22 18:44 Mental Health & Subst Abuse Tx Psychiatrist Name of Psychiatrist: Dr. Nathan Therapist Name of Therapist: Psy. Ranjit Lama Therapist's Date of Therapist Appointment: 06/13/22 Animal Impersonator Name of Animal Impersonator: [employer] Phone Number for Animal Impersonator: [phone] Post Discharge Appointments Primary Care Physician Name Of Family Doctor: Dr. Guaman
[2022-06-10] MEDS: SERTRALINE HCL 50 MG TABLET PO SCH (20:18)
[2022-06-10] MEDS: risperiDONE 1 MG TABLET PO SCH (20:19)
[2022-06-10] MEDS: MIRTAZAPINE TAB 15 MG TAB PO SCH (20:20)
--- NOTE | 2022-06-11 06:41 | Discharge Summary ---
Date of Service June 11, 2022 History of Present Illness As per Dr. Magana on admission: She presents for psychiatric admission for worsening depression and SI with plan of crashing her car or cutting her wrists in the context of multiple psychosocial stressors including loss of her job/having to quit a week ago due to difficulty working/feedback that she had made mistakes and social isolation. She is very tearful this morning as she misses her parents and notes that it's difficult to be away from her mom. She notes "I'm scared of everything" including "how I'm going to keep a job" and she notes "I can't do my job right because of my OCD or I'm not qualified because I'm not good enough at it". "I just don't want to hurt and be so tired anymore". She notes "I don't want to live like this and I have no hope". She gets really worried that something bad will happen to her parents. Further recent history reviewed and confirmed as documented by ED CM on 06/06/22: "Patient presents very tearful. Patient states that she "wants to and does not want to live any more." Patient reports that she has history of OCD and ADHD. 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 Patient reports that she has been having bad thoughts for awhile, but they have worsened in the past week. Patient reports having suicidal thoughts of cutting her wrist or running her car into a tree." "Patient denies history of depression. Patient reports that she started having depression symptoms within the past week after losing her job. Patient reports decreased appetite, isolation, insomnia, poor concentration, and loss of interes t in things that she usually finds pleasure in. Patient denies prior history of suicidal thoughts prior to this episode. Patient does report history of self- harm by punching herself in the stomach to make sure she can still feel. Patient scored high-moderate on suicide risk assessment. Patient reports protective factors being her parents. Patient does not want to hurt her parents by killing herself, but she is uncertain that it will keep herself from hurting herself. Patient reports a good relationship with her mental health providers. Patient also reports a very supportive relationship with her parents. [...] Patient reports that her OCD symptoms have greatly improved over the past week because she feels her depressive symptoms have over shadowed them. Patient reports that her parents were contaminated and they could not touch her. This past week she has allowed them to hug her, and provided physical support." She endorses depressive symptoms including tearfulness, anhedonia (usually loves to read, watch TV but hasn't been able to do these things recently), decreased motivation, difficulty focusing, self-guilt, helplessness, hopelessness, decreased energy, stable appetite but stomach has been upset recently with increased anxiety, and decreased sleep with difficulty staying asleep because wakes up with worries. She continues to have intermittent SI "they come and go". She also endorses symptoms of anxiety including generalized worries, shakiness, easily overwhelmed and panic attacks including "passing out from them" or "throwing up". With her OCD has a lot of numbers and patterns and some feel good versus bad. Compulsion requires her to repeat counting pattern and if she don't she feels "bad". She also has contamination concerns and has the compulsion to wash and was spending a lot of time doing this. She is currently prescribed psychiatric medication of risperidone 2mg qhs (has been taking this for about 6 months, had been helping OCD but she feels it's ki ing her depression worse). Psychiatric ROS notable for no current nor history of symptoms of emely, psychosis, PTSD, nor eating disorder. Physical Exam Psychiatric See admission H&P and DOD assessment. Vital Signs (Past 24 Hours) Last Vital Signs Temp 36.9 C 06/11/22 06:31 Pulse 105 H 06/11/22 06:32 Resp 16 06/11/22 06:31 BP 107/72 06/11/22 06:32 Pulse Ox 100 06/06/22 20:18 O2 Del Method 06/06/22 20:18 Principal Diagnosis major depressive disorder Psychiatric Data See daily stay summary. In short, safety was maintained and the patient was cooperative with care. Medication changes included restart of Risperdal and a trial of Zoloft and Remeron per Dr. Magana and they tolerated this well. The patient has a long history of anxiety related to medication changes and reported subjective restlessness with Risperdal despite recognizing that it was helpful for her ruminations. She was encouraged to continue and worked with outpatient psychiatrist on titration of Zoloft with plan to taper Risperdal to minimize longer term side effects like metabolic and TD. She voiced good understanding of this plan/need for monitoring. She is not sexually active and does not plan to become active in near future so control was not discussed in detail. A family session was held with her parents who were supportive and safety plan was completed prior to discharge. Day of Discharge Assessment Today the patient voices readiness for discharge. They note improvement in mood and deny thoughts to harm self or others. Thoughts remain organized and they are improved from admission. There is no evidence of psychosis. They agree to take mediations as prescribed and keep follow-up appointments. They are stable for discharge to outpatient level of care. Transition of Care Transition Of Care Record: was reviewed with the patient Advance Directives Advance Directives Information Provided: Yes Advance Directives: No Mental Health Advance Directive: No Advance Directives on File: No Living Will: No Power of Investigative Agent: No Advance Directives Reason:: Declines as Mental Health Visit. Suicide Risk Level Suicide Risk Level Comments: Suicide risk at discharge is deemed low as the patient is no longer requiring 24-hr monitoring, has a safety plan, and is free of suicidal ideation at discharge. Risk Factors Assessment : Yes Do You Have Access To A Gun?: No Health Problems: No Mental Health Diagnoses: Yes Substance Use Disorders: No Previous Attempt: No Family History of Suicide: No Previous Psychiatric Hospitalization: Yes Hopelessness: Yes Protective Factors Assessment Employed: No Stable Relationships: Yes Supportive Family: Yes Good Rapport with Provider: Yes Tobacco Cessation at Discharge Tobacco Cessation Medication Prescribed at Discharge: Not Applicable/Non-Smoker Total Time Total Time Spent: Greater Than 30 Minutes Total Time Includes: Examination of the patient, Discharge Planning and Medication Reconciliation Discharge Data Lab Results 06/06/22 06/06/22 06/06/22 15:55 15:55 15:55 WBC RBC Hgb Hct MCV MCH MCHC RDW Std Deviation RDW Coeff of Christal Plt Count MPV Immature Gran % (Auto) Neut % (Auto) Lymph % (Auto) Mcmullen % (Auto) Eos % (Auto) Baso % (Auto) Neut # (Auto) Lymph # (Auto) Mcmullen # (Auto) Eos # (Auto) Baso # (Auto) Immature Gran # (Auto) D-Dimer Sodium Potassium Chloride Carbon Dioxide Anion Gap BUN Creatinine Est Cr Clr Drug Dosing Est GFR ( Amer) Est GFR (Non-Af Amer) BUN/Creatinine Ratio Glucose Fasting Glucose Calcium Total Bilirubin AST ALT Alkaline Phosphatase Troponin I High Sens Total Protein Albumin Globulin Albumin/Globulin Ratio Triglycerides Cholesterol LDL Cholesterol, Calc VLDL Cholesterol, Calc HDL Cholesterol Cholesterol/HDL Ratio TSH Urine Color Yellow Urine Appearance Clear Urine pH 6.5 Ur Specific [place] 1.005 Urine Protein Negative Urine Glucose (UA) Negative Urine Ketones Negative Urine Blood Negative Urine Nitrite Negative Urine Bilirubin Negative Urine Urobilinogen Negative Ur Leukocyte Esterase 3+ H Urine WBC (Auto) 10-30 H Urine RBC (Auto) 0-4 U Hyaline Cast (Auto) 1-5 U Epithel Cells (Auto) >30 H Urine Bacteria (Auto) 1+ H POC Ur Test NEG Salicylates Urine Opiates Screen Ur Methadone, Qual Acetaminophen Urine Barbiturates Ur Phencyclidine (PCP) U Amphetamin/Meth Scrn MDMA (Ecstasy) Screen U Benzodiazepines Scrn Ur Cocaine Metabolite U Marijuana (THC) Screen Ethyl Alcohol mg/dL SARS-CoV-2, RNA, NAAT NEGATIVE 06/06/22 06/06/22 06/06/22 15:55 16:39 16:39 WBC 6.88 RBC 4.92 Hgb 14.2 Hct 41.3 MCV 83.9 MCH 28.9 MCHC 34.4 RDW Std Deviation 35.8 L RDW Coeff of Christal 11.8 Plt Count 358 MPV 9.9 Immature Gran % (Auto) 0.9 Neut % (Auto) 49.6 Lymph % (Auto) 35.3 Mcmullen % (Auto) 9.4 Eos % (Auto) 3.6 Baso % (Auto) 1.2 Neut # (Auto) 3.41 Lymph # (Auto) 2.43 Mcmullen # (Auto) 0.65 Eos # (Auto) 0.25 Baso # (Auto) 0.08 Immature Gran # (Auto) 0.06 H D-Dimer Sodium 138 Potassium 3.8 Chloride 105 Carbon Dioxide 28 Anion Gap 5 BUN 11 Creatinine 0.83 Est Cr Clr Drug Dosing 100.8 Est GFR ( Amer) 113.6 Est GFR (Non-Af Amer) 98.0 BUN/Creatinine Ratio 13.3 Glucose 79 Fasting Glucose Calcium 9.4 Total Bilirubin 0.3 AST 10 L ALT 9 Alkaline Phosphatase 55 Troponin I High Sens < 2.3 Total Protein 7.6 Albumin 4.5 Globulin 3.1 Albumin/Globulin Ratio 1.5 Triglycerides Cholesterol LDL Cholesterol, Calc VLDL Cholesterol, Calc HDL Cholesterol Cholesterol/HDL Ratio TSH Urine Color Urine Appearance Urine pH Ur Specific [place] Urine Protein Urine Glucose (UA) Urine Ketones Urine Blood Urine Nitrite Urine Bilirubin Urine Urobilinogen Ur Leukocyte Esterase Urine WBC (Auto) Urine RBC (Auto) U Hyaline Cast (Auto) U Epithel Cells (Auto) Urine Bacteria (Auto) POC Ur Test Salicylates Urine Opiates Screen Neg Ur Methadone, Qual Neg Acetaminophen Urine Barbiturates Neg Ur Phencyclidine (PCP) Neg U Amphetamin/Meth Scrn Neg MDMA (Ecstasy) Screen Neg U Benzodiazepines Scrn Neg Ur Cocaine Metabolite Neg U Marijuana (THC) Screen Neg Ethyl Alcohol mg/dL SARS-CoV-2, RNA, NAAT 06/06/22 06/06/22 06/06/22 16:39 16:39 16:39 WBC RBC Hgb Hct MCV MCH MCHC RDW Std Deviation RDW Coeff of Christal Plt Count MPV Immature Gran % (Auto) Neut % (Auto) Lymph % (Auto) Mcmullen % (Auto) Eos % (Auto) Baso % (Auto) Neut # (Auto) Lymph # (Auto) Mcmullen # (Auto) Eos # (Auto) Baso # (Auto) Immature Gran # (Auto) D-Dimer Sodium Potassium Chloride Carbon Dioxide Anion Gap BUN Creatinine Est Cr Clr Drug Dosing Est GFR ( Amer) Est GFR (Non-Af Amer) BUN/Creatinine Ratio Glucose Fasting Glucose Calcium Total Bilirubin AST ALT Alkaline Phosphatase Troponin I High Sens Total Protein Albumin Globulin Albumin/Globulin Ratio Triglycerides Cholesterol LDL Cholesterol, Calc VLDL Cholesterol, Calc HDL Cholesterol Cholesterol/HDL Ratio TSH 1.097 Urine Color Urine Appearance Urine pH Ur Specific [place] Urine Protein Urine Glucose (UA) Urine Ketones Urine Blood Urine Nitrite Urine Bilirubin Urine Urobilinogen Ur Leukocyte Esterase Urine WBC (Auto) Urine RBC (Auto) U Hyaline Cast (Auto) U Epithel Cells (Auto) Urine Bacteria (Auto) POC Ur Test Salicylates < 3.0 L Urine Opiates Screen Ur Methadone, Qual Acetaminophen < 3 L Urine Barbiturates Ur Phencyclidine (PCP) U Amphetamin/Meth Scrn MDMA (Ecstasy) Screen U Benzodiazepines Scrn Ur Cocaine Metabolite U Marijuana (THC) Screen Ethyl Alcohol mg/dL < 10.0 SARS-CoV-2, RNA, NAAT 06/06/22 06/09/22 16:39 07:58 WBC RBC Hgb Hct MCV MCH MCHC RDW Std Deviation RDW Coeff of Christal Plt Count MPV Immature Gran % (Auto) Neut % (Auto) Lymph % (Auto) Mcmullen % (Auto) Eos % (Auto) Baso % (Auto) Neut # (Auto) Lymph # (Auto) Mcmullen # (Auto) Eos # (Auto) Baso # (Auto) Immature Gran # (Auto) D-Dimer 270 Sodium Potassium Chloride Carbon Dioxide Anion Gap BUN Creatinine Est Cr Clr Drug Dosing Est GFR ( Amer) Est GFR (Non-Af Amer) BUN/Creatinine Ratio Glucose Fasting Glucose 84 Calcium Total Bilirubin AST ALT Alkaline Phosphatase Troponin I High Sens Total Protein Albumin Globulin Albumin/Globulin Ratio Triglycerides 82 Cholesterol 172 LDL Cholesterol, Calc 109 VLDL Cholesterol, Calc 16 HDL Cholesterol 47 Cholesterol/HDL Ratio 3.7 TSH Urine Color Urine Appearance Urine pH Ur Specific [place] Urine Protein Urine Glucose (UA) Urine Ketones Urine Blood Urine Nitrite Urine Bilirubin Urine Urobilinogen Ur Leukocyte Esterase Urine WBC (Auto) Urine RBC (Auto) U Hyaline Cast (Auto) U Epithel Cells (Auto) Urine Bacteria (Auto) POC Ur Test Salicylates Urine Opiates Screen Ur Methadone, Qual Acetaminophen Urine Barbiturates Ur Phencyclidine (PCP) U Amphetamin/Meth Scrn MDMA (Ecstasy) Screen U Benzodiazepines Scrn Ur Cocaine Metabolite U Marijuana (THC) Screen Ethyl Alcohol mg/dL SARS-CoV-2, RNA, NAAT Hospital Course (1) Severe single episode of major depressive disorder with anxiety: (2) Obsessive compulsive disorder: (3) Generalized anxiety disorder with panic attacks: Plan 06/10/22: would hold Zoloft titration to an outpatient basis with plan to taper Risperdal when more therapeutic level. 06/09/22: continue current meds and treatment plan. 06/08/22: -restart risperidone 1.5mg qhs -mirtazapine 7.5 mg qhs -start sertraline 25mg qhs (per her preference as then potentially will be less susceptible to GI side effects) 06/07/22: The patient was admitted to [facility] on q15 min checks (behavioral with suicide precautions) for safety. The patient will participate in group, recreational, and milieu therapies and will be offered additional individual and family sessions as clinically appropriate. -holding risperidone per her preference -start mirtazapine 7.5mg qhs for depression and anxiety -consider sertraline vs venlafaxine for OCD/BRANNON/MDD -consider N-acetyl cysteine trial in outpatient setting for further augmentation for OCD symptoms -Case management referral Mental Health & Subst Abuse Tx Psychiatrist Name of Psychiatrist: Dr. Nathan Therapist Name of Therapist: Psy. Ranjit Lama Therapist's Date of Therapist Appointment: 06/13/22 Time of Therapist Appointment: 10:00 AM Therapy Appointment Comment: [address] [address] [place] [employer] Name of [place] [employer]: [employer] Phone Number for [place] [employer]: [phone] Post Discharge Appointments Primary Care Physician Name Of Family Doctor: Natalie East - Dr. Guaman Primary Care Provider Appointment Comment: Follow up with PCP as needed. Smoking Cessation Counseling Tobacco Cessation Medication Prescribed at Discharge: Not Applicable/Non-Smoker Other #1: Name of Aftercare Appointment: [facility] ([facility]) Phone Number of Aftercare Appointment: [phone] Contact Information Discharge Discharge [address]: [address] [place] [address] Discharge Plan Discharge Items Patient Disposition: Home - Self-Care Reason For Visit: SUICIDAL IDEATION Discharge Diagnosis: major depressive disorder Activity: Resume your previous activity Non-emergency contact: Primary Care Provider, Psychiatrist and Therapist Call non-emergency contact if: you have any medication questions and your symptoms worsen Follow-up/Referrals: Nicole Guaman, [Primary Care Provider] - Diet: Regular Addtl Attending Provider Instructions: SPECIAL CARE INSTRUCTIONS: 1. Follow through with your scheduled aftercare appointments. If unable to keep an appointment, please call to reschedule. 2. Take your medication only as prescribed. Medication should not be changed or stopped without the approval of your doctor. In the event of worsening symptoms or concerns about side effects, contact your doctor immediately. 3. Utilize new healthy coping skills, anger management skills, and stress management skills learned during your hospitalization. Journal feelings and process them with a support person. Identify stressors or situations that may result in relapse, deterioration or inappropriate behaviors and develop a plan to deal with those issues. 4. If your coping skills are ineffective and you are in crisis, contact your outpatient providers for direction. If unable to reach your providers, please call the [facility] CRISIS LINE AT , go to the [facility] walk-in center at [address], [address], [place], or go to the closest Emergency Room. 5. Avoid alcohol and un-prescribed drugs. 6. You have been provided with the Mental Health Advance Directives Pamphlet for your review. 7. Your condition is stable for discharge to outpatient level of care, but recovery is an ongoing process. Ifthoughts to harm yourself or others return, follow the safety plan developed during your stay. Planning for a safe return home includes securing weapons. Our treatment team recommends weaponsbe removed from the home until your outpatient provider reassesses your progress. In rare cases where the items themselvescannot be removed, guns and ammunitionshould be secured separatelyand keys stored by a reliable personoutside of the home. If you were admitted on an involuntary commitment, the police or other legal authorities may be involved in this process. AFTERCARE APPOINTMENTS: * Please call your insurance company prior to your scheduled appointment to confirm your aftercare providers are covered. Take your insurance information to your appointments. WHO TO CALL AND WHEN: Medical Emergencies: For questions or emergencies related to your hospital stay, please contact the Inpatient Behavioral Health Unit at [phone]. A welder railcar mechanic is on-call 08/04 for the Behavioral Health Unit for emergencies At any time you feel your situation is an emergency, you may also call 911 immediately. Pending Studies at Discharge: No Stand-Alone Forms: My [employer], Smoking Cessation Medications and DC Order Prescriptions: New hydroxyzine HCl 25 mg Tablet 25 mg PO Q6 PRN (Reason: Anxiety) 30 Days Qty: 30 0RF mirtazapine 7.5 mg tablet 7.5 mg PO HS Qty: 30 0RF risperidone 1 mg tablet 1 mg PO HS Qty: 30 0RF risperidone [Risperdal] 0.5 mg tablet 0.5 mg PO HS Qty: 30 0RF Rx Instructions: if insurance won't pay for both, please alter 1 mg rx to 1.5 mg tab #45 for 30 day supply sertraline 50 mg Tablet 25 mg PO HS Qty: 30 0RF Discontinued risperidone 2 mg tablet 2 mg PO 1XD Rx Instructions: Take at bedtime. Discharge Orders: Discharge Order (Routine); Ordered 06/11/22 Ordered By: Charlotte Cunha Admission Data Admit Date/Time: 06/06/22 18:46 Attending Provider: Charlotte Cunha Admit Provider: Genesis Magana Primary Care Provider: Nicole Guaman Other Interventions: Discharge Summary Assessment (RN) Last Done: 06/11/22 09:55 PSY Interdisciplinary Discharge Planning Last Done: 06/11/22 10:06 Coding Level of Care Code 31033 D/C day mgmt > 30 min Diagnoses Severe single episode of major depressive disorder with anxiety F32.2; F41.8 Obsessive compulsive disorder F42.9 Generalized anxiety disorder with panic attacks F41.1; F41.0
[2022-06-11] MEDS: hydrOXYzine HCl 25 MG TAB PO PRN (09:15)
== END 2022-06-11 15:00 | disposition home or self-care (01) | DRG 885 ==
LOC: ED 15:20 → 3S 18:46 → SUATTDRO 18:46 → 3S 19:31